=== PATIENT | female | born 1945 | race Caucasian/White ===

== ENCOUNTER → 2018-01-21 | Outpatient (REF) | payer MEDICARE ==
[2018-01-21 17:37] LABS: INR 2.13; PROTHROMBIN TIME 24.2 SECONDS (12.1-14.4)
== END ==
LOC: M LABDRWCV 16:32
DX: D68.8 Other specified coagulation defects (principal); Z51.81 Encounter for therapeutic drug level monitoring; Z79.01 Long term (current) use of anticoagulants
CPT/HCPCS: 85610

== ENCOUNTER → 2018-02-22 | Outpatient (REF) | payer MEDICARE ==
[2018-02-22 18:11] LABS: PROTHROMBIN TIME 24.9 SECONDS (12.1-14.4)
== END ==
LOC: M LABDRWCV 16:43
DX: D68.8 Other specified coagulation defects (principal); Z51.81 Encounter for therapeutic drug level monitoring; Z79.01 Long term (current) use of anticoagulants
CPT/HCPCS: 85610

== ENCOUNTER → 2019-01-10 | Outpatient (REF) | payer MEDICARE ==
[2019-01-10 19:07] LABS: INR 3.08; PROTHROMBIN TIME 31.7 SECONDS (11.8-14.0)
== END ==
LOC: M LABDRWCV 17:18
PROVIDERS: ATTEND Internal Medicine Cardiovascular Disease
DX: D68.8 Other specified coagulation defects (principal); Z79.01 Long term (current) use of anticoagulants

== ENCOUNTER → 2019-02-10 | Outpatient (REF) | payer MEDICARE ==
[2019-02-10 13:36] LABS: INR 3.46; PROTHROMBIN TIME 34.8 SECONDS (11.8-14.0)
== END ==
LOC: M LABDRWCV 12:12
PROVIDERS: ATTEND Internal Medicine Cardiovascular Disease
DX: D68.8 Other specified coagulation defects (principal); Z79.01 Long term (current) use of anticoagulants

== ENCOUNTER → 2019-02-24 | Outpatient (REF) | payer MEDICARE ==
[2019-02-24 17:18] LABS: INR 2.3; PROTHROMBIN TIME 25.1 SECONDS (11.8-14.0)
== END ==
LOC: M LABDRWCV 16:32
PROVIDERS: ATTEND Internal Medicine Cardiovascular Disease
DX: D68.8 Other specified coagulation defects (principal); Z79.01 Long term (current) use of anticoagulants

== ENCOUNTER → 2020-01-04 | Outpatient (REF) | payer MEDICARE ==
[2020-01-04 16:33] LABS: INR 3.32; PROTHROMBIN TIME 33.7 SECONDS (11.8-14.0)
== END ==
LOC: M LABDRAWC 15:44
PROVIDERS: ATTEND Internal Medicine Cardiovascular Disease
DX: I48.0 Paroxysmal atrial fibrillation (principal)

== ENCOUNTER → 2020-01-18 | Outpatient (REF) | payer MEDICARE ==
[2020-01-18 17:42] LABS: INR 1.94; PROTHROMBIN TIME 21.9 SECONDS (11.8-14.0)
== END ==
LOC: M LABDRAWC 16:23
PROVIDERS: ATTEND Internal Medicine Cardiovascular Disease
DX: I48.0 Paroxysmal atrial fibrillation (principal)

== ENCOUNTER → 2020-02-01 | Outpatient (REF) | payer MEDICARE ==
[2020-02-27 09:05] LABS: INR 2.19; PROTHROMBIN TIME 24.9 SECONDS (11.8-14.0)
== END ==
LOC: M LABDRAWC 08:10
PROVIDERS: ATTEND Internal Medicine Cardiovascular Disease
DX: I48.0 Paroxysmal atrial fibrillation (principal)

== ENCOUNTER → 2020-02-15 | Outpatient (REF) | payer MEDICARE ==
[2020-03-17 12:02] LABS: INR 1.88
== END ==
LOC: M LABDRAWC 06:37
PROVIDERS: ATTEND Internal Medicine Cardiovascular Disease
DX: I48.0 Paroxysmal atrial fibrillation (principal)

== ENCOUNTER → 2020-02-22 | Outpatient (REF) | payer MEDICARE ==
[2020-02-22 17:54] LABS: INR 2.09; PROTHROMBIN TIME 23.9 SECONDS (11.8-14.0)
== END ==
LOC: M LABDRAWC 16:01
PROVIDERS: ATTEND Internal Medicine Cardiovascular Disease
DX: I48.0 Paroxysmal atrial fibrillation (principal)

== ENCOUNTER → 2020-03-21 | Outpatient (REF) | payer MEDICARE ==
[2020-03-21 16:50] LABS: INR 1.92; PROTHROMBIN TIME 22.4 SECONDS (11.8-14.0)
== END ==
LOC: M LABDRAWC 16:03
PROVIDERS: ATTEND Internal Medicine Cardiovascular Disease
DX: I48.0 Paroxysmal atrial fibrillation (principal)

== ENCOUNTER → 2020-12-25 | Outpatient (REF) | payer MEDICARE ==
[2020-12-25 17:13] LABS: INR 2.19; PROTHROMBIN TIME 24.8 SECONDS (12.5-14.3)
== END ==
LOC: M LABDRWCV 15:50
PROVIDERS: ATTEND Internal Medicine Cardiovascular Disease
DX: I48.0 Paroxysmal atrial fibrillation (principal)

== ENCOUNTER → 2020-12-25 | Outpatient (REF) | payer MEDICARE ==
[2020-12-25 17:16] LABS: CALCIUM LEVEL 9.2 MG/DL (8.8-10.2); CREATININE FOR GFR 1.38 MG/DL (0.55-1.30); GLOMERULAR FILTRATION RATE 39.9 (>39); POTASSIUM SERUM 3.2 MEQ/L (3.5-5.1)
== END ==
LOC: M LABDRWCV 15:53
DX: E87.6 Hypokalemia (principal); I50.9 Heart failure, unspecified; I48.0 Paroxysmal atrial fibrillation

== ENCOUNTER → 2021-01-23 | Outpatient (REF) | payer MEDICARE ==
[2021-01-23 18:13] LABS: POTASSIUM SERUM 3.6 MEQ/L (3.5-5.1)
== END ==
LOC: M LABDRWCV 15:59
DX: E87.6 Hypokalemia (principal); I48.0 Paroxysmal atrial fibrillation

== ENCOUNTER → 2021-01-23 | Outpatient (REF) | payer MEDICARE ==
[2021-01-23 18:07] LABS: INR 2.07; PROTHROMBIN TIME 23.8 SECONDS (12.5-14.3)
== END ==
LOC: M LABDRWCV 16:01
PROVIDERS: ATTEND Internal Medicine Cardiovascular Disease
DX: I48.0 Paroxysmal atrial fibrillation (principal)

== ENCOUNTER → 2021-02-21 | Outpatient (REF) | payer MEDICARE ==
[2021-02-21 17:12] LABS: INR 2.76; PROTHROMBIN TIME 29.5 SECONDS (12.7-14.5)
== END ==
LOC: M LABDRWCV 16:01
PROVIDERS: ATTEND Internal Medicine Cardiovascular Disease
DX: I48.0 Paroxysmal atrial fibrillation (principal)

== ENCOUNTER → 2021-03-21 | Outpatient (REF) | payer MEDICARE ==
[2021-03-21 16:39] LABS: INR 2.54; PROTHROMBIN TIME 27.7 SECONDS (12.7-14.5)
== END ==
LOC: M LABDRWCV 15:54
PROVIDERS: ATTEND Internal Medicine Cardiovascular Disease
DX: I48.0 Paroxysmal atrial fibrillation (principal)

== ENCOUNTER → 2022-01-02 | Outpatient (REF) | payer MEDICARE ==
[2022-01-02 16:14] LABS: INR 1.64; PROTHROMBIN TIME 19.8 SECONDS (12.7-14.5)
== END ==
LOC: M LABDRWCV 15:47
PROVIDERS: ATTEND Internal Medicine Cardiovascular Disease
DX: I48.0 Paroxysmal atrial fibrillation (principal)

== ENCOUNTER → 2022-01-15 | Outpatient (REF) | payer MEDICARE ==
[2022-01-15 16:50] LABS: INR 3.49; PROTHROMBIN TIME 35.3 SECONDS (12.7-14.5)
== END ==
LOC: M LABDRWCV 15:38
PROVIDERS: ATTEND Internal Medicine Cardiovascular Disease
DX: I48.0 Paroxysmal atrial fibrillation (principal)

== ENCOUNTER → 2022-01-29 | Outpatient (REF) | payer MEDICARE ==
[2022-01-29 16:52] LABS: INR 4.17; PROTHROMBIN TIME 40.5 SECONDS (12.7-14.5)
== END ==
LOC: M LABDRWCV 16:18
PROVIDERS: ATTEND Internal Medicine Cardiovascular Disease
DX: I48.0 Paroxysmal atrial fibrillation (principal)

== ENCOUNTER → 2022-02-12 | Outpatient (REF) | payer MEDICARE ==
[2022-02-12 18:20] LABS: INR 3.71
== END ==
LOC: M LABDRWCV 16:50
PROVIDERS: ATTEND Internal Medicine Cardiovascular Disease
DX: I48.0 Paroxysmal atrial fibrillation (principal)

== ENCOUNTER → 2022-02-26 | Outpatient (REF) | payer MEDICARE ==
[2022-02-26 18:20] LABS: INR 3.19
== END ==
LOC: M LABDRWCV 17:17
PROVIDERS: ATTEND Internal Medicine Cardiovascular Disease
DX: I48.0 Paroxysmal atrial fibrillation (principal)

== ENCOUNTER → 2023-01-07 | Outpatient (REF) | payer MEDICARE ==
[2023-01-07 17:29] LABS: INR 1.7; PROTHROMBIN TIME 20.3 SECONDS (12.5-14.5)
== END ==
LOC: M LABDRWCV 16:48
PROVIDERS: ATTEND Specialist
DX: I48.91 Unspecified atrial fibrillation (principal)

== ENCOUNTER → 2023-01-21 | Outpatient (REF) | payer MEDICARE ==
[2023-01-21 17:32] LABS: INR 1.35; PROTHROMBIN TIME 16.9 SECONDS (12.5-14.5)
== END ==
LOC: M LABDRWCV 16:45
PROVIDERS: ATTEND Specialist
DX: I48.91 Unspecified atrial fibrillation (principal)

== ENCOUNTER → 2023-01-28 | Outpatient (REF) | payer MEDICARE ==
[2023-01-28 17:16] LABS: INR 1.9; PROTHROMBIN TIME 22.1 SECONDS (12.5-14.5)
== END ==
LOC: M LABDRWCV 16:41
PROVIDERS: ATTEND Specialist
DX: I48.91 Unspecified atrial fibrillation (principal)

== ENCOUNTER → 2023-02-10 | Outpatient (REF) | payer MEDICARE ==
[2023-02-10 17:32] LABS: INR 2.51; PROTHROMBIN TIME 27.5 SECONDS (12.5-14.5)
== END ==
LOC: M LABDRWCV 16:34
PROVIDERS: ATTEND Specialist
DX: I48.91 Unspecified atrial fibrillation (principal)

== ENCOUNTER → 2023-12-23 | Outpatient (REF) | payer MEDICARE | LOC: M LABDRWCV 16:34 | PROVIDERS: ATTEND Internal Medicine Geriatric Medicine | DX: I48.91 Unspecified atrial fibrillation (principal) ==

== ENCOUNTER → 2024-01-20 | Outpatient (REF) | payer MEDICARE ==
[2024-01-20 17:07] LABS: INR 1.98; PARTIAL THROMBOPLASTIN TIME 34.5 SECONDS (24.8-34.2); PROTHROMBIN TIME 21.8 SECONDS (12.5-14.5)
== END ==
LOC: M LABDRWCV 16:36 → M LAB REF 16:36
PROVIDERS: ATTEND Internal Medicine Geriatric Medicine
DX: I48.91 Unspecified atrial fibrillation (principal)

== ENCOUNTER → 2024-02-17 | Outpatient (REF) | payer MEDICARE ==
[2024-02-17 17:03] LABS: INR 2.07; PARTIAL THROMBOPLASTIN TIME 34.8 SECONDS (24.8-34.2); PROTHROMBIN TIME 22.6 SECONDS (12.5-14.5)
== END ==
LOC: M LABDRAWC 16:28
PROVIDERS: ATTEND Internal Medicine Geriatric Medicine
DX: I48.91 Unspecified atrial fibrillation (principal)